=== PATIENT | female | born 1995 | race Two or more races ===

== ENCOUNTER 2020-02-20 13:04 | Emergency (ER) | payer OTHER ==
[~2020-02-20] VITALS: Ht 152.4 cm; Wt 38.6 kg
[2020-02-20] MEDS ORDERED: DOLOGEN CAPLET1 EACH PO (20:39)
[2020-02-20] MEDS ORDERED: CLEOCIN HCL300 MG PO (20:39)
[2020-02-20] MEDS ORDERED: PEPCID AC20 MG PO (20:39)
== END 2020-02-20 20:56 | disposition home or self-care (01) ==
LOC: ER 13:04
DX: J03.90 Acute tonsillitis, unspecified (principal); B96.0 Mycoplasma pneumoniae [M. pneumoniae] as the cause of diseases classified elsewhere; Z03.818 Encounter for observation for suspected exposure to other biological agents ruled out
CPT/HCPCS: 70492; Q9965

== ENCOUNTER 2020-06-15 13:39 | Emergency (ER) | payer OTHER ==
[~2020-06-15] VITALS: Ht 170.2 cm; Wt 44.5 kg
[~2020-06-15 13:39] MED LIST: CLEOCIN HCL300 MG PO; DOLOGEN CAPLET1 EACH PO; PEPCID AC20 MG PO
[2020-06-15] MEDS ORDERED: ORPHENADRINE C100 MG PO (16:19)
[2020-06-15] MEDS ORDERED: ULTRAM50 MG PO (16:19)
== END 2020-06-15 17:40 | disposition home or self-care (01) ==
LOC: ER 13:39
DX: S13.8XXA Sprain of joints and ligaments of other parts of neck, initial encounter (principal); S33.5XXA Sprain of ligaments of lumbar spine, initial encounter; S60.222A Contusion of left hand, initial encounter; S80.01XA Contusion of right knee, initial encounter; S80.02XA Contusion of left knee, initial encounter; R55 Syncope and collapse; V49.88XA Car occupant (driver) (passenger) injured in other specified transport accidents, initial encounter; Y93.89 Activity, other specified; Y92.488 Other paved roadways as the place of occurrence of the external cause; Y99.8 Other external cause status

== ENCOUNTER 2020-08-20 18:39 | Emergency (ER) | payer OTHER ==
[~2020-08-20] VITALS: Ht 170.2 cm; Wt 44.5 kg
[~2020-08-20 18:39] MED LIST changes: +ORPHENADRINE C100 MG PO; +ULTRAM50 MG PO
[2020-08-21] MEDS ORDERED: ULTRACET PO (02:58)
[2020-08-21] MEDS ORDERED: BACTRIM DS TAB1 EACH PO (02:58)
== END 2020-08-21 03:10 | disposition home or self-care (01) ==
LOC: ER 18:39
DX: N75.8 Other diseases of Bartholin's gland (principal)

== ENCOUNTER 2020-08-23 21:02 | Inpatient (IN) | payer OTHER ==
[~2020-08-23] VITALS: Ht 170.2 cm; Wt 45.4 kg
[~2020-08-23 21:02] MED LIST changes: +BACTRIM DS TAB1 EACH PO; +ULTRACET PO
[2020-08-26] MEDS ORDERED: CIPROFLOXACIN500 MG PO (11:53)
== END 2020-08-26 13:34 | disposition home or self-care (01) | DRG 759 ==
LOC: ER 21:02 → SEC-K 08-24 09:08 → OB/GYN 08-24 10:58
PROVIDERS: ADMIT Obstetrics & Gynecology; ATTEND Obstetrics & Gynecology
DX: N75.1 Abscess of Bartholin's gland (principal); N76.4 Abscess of vulva; B96.20 Unspecified Escherichia coli [E. coli] as the cause of diseases classified elsewhere; B95.2 Enterococcus as the cause of diseases classified elsewhere; Z20.822 Contact with and (suspected) exposure to COVID-19

== ENCOUNTER → 2021-03-20 | Emergency (ER) | payer OTHER ==
[~2021-03-20] VITALS: Ht 162.6 cm; Wt 49.9 kg
[~2021-03-20] MED LIST changes: +CIPROFLOXACIN500 MG PO
== END | disposition left against medical advice (07) ==
LOC: ER 20:14
DX: R10.2 Pelvic and perineal pain (principal)

== ENCOUNTER 2021-11-01 16:09 | Emergency (ER) | payer OTHER ==
[~2021-11-01] VITALS: Ht 170.2 cm; Wt 44.5 kg
[2021-11-01] MEDS ORDERED: ZITHROMAX500 MG PO (18:23)
== END 2021-11-01 18:48 | disposition home or self-care (01) ==
LOC: ER 16:09
DX: J06.9 Acute upper respiratory infection, unspecified (principal); B96.0 Mycoplasma pneumoniae [M. pneumoniae] as the cause of diseases classified elsewhere; Z20.822 Contact with and (suspected) exposure to COVID-19

== ENCOUNTER → 2021-11-12 | Emergency (ER) | payer OTHER ==
[~2021-11-12] VITALS: Ht 170.2 cm; Wt 45.4 kg
[~2021-11-12] MED LIST changes: +CIPRO500 MG PO; +METRONIDAZOLE500 MG; +MONISTAT 324 GM VAG; +ZITHROMAX500 MG PO
== END | disposition home or self-care (01) ==
LOC: ER 22:01
DX: N39.0 Urinary tract infection, site not specified (principal)

== ENCOUNTER 2022-03-13 09:16 | Emergency (ER) | payer OTHER ==
[~2022-03-13] VITALS: Ht 170.2 cm; Wt 45.8 kg
== END 2022-03-13 10:26 | disposition home or self-care (01) ==
LOC: ER 09:16
DX: J03.90 Acute tonsillitis, unspecified (principal); Z88.6 Allergy status to analgesic agent; Z88.0 Allergy status to penicillin; Z88.8 Allergy status to other drugs, medicaments and biological substances

== ENCOUNTER 2023-03-14 18:23 | Emergency (ER) | payer OTHER ==
[~2023-03-14] VITALS: Ht 170.2 cm; Wt 47.2 kg
== END 2023-03-14 22:47 | disposition home or self-care (01) ==
LOC: ER 18:23
DX: N39.0 Urinary tract infection, site not specified (principal); Z88.6 Allergy status to analgesic agent; Z88.0 Allergy status to penicillin; Z88.8 Allergy status to other drugs, medicaments and biological substances